=== PATIENT | male | born 1940 | race African-American/Black ===

== ENCOUNTER 2018-07-14 12:25 | Emergency (ER) | payer OTHER ==
[2018-07-14] MEDS ORDERED: Dextrose 50% Abboject 50 ML SYRINGE ONE ×2 (13:22→14:02)
== END 2018-07-14 14:40 | disposition home or self-care (01) ==
LOC: NAV ERS 12:25
DX: E11.649 Type 2 diabetes mellitus with hypoglycemia without coma (principal)
CPT/HCPCS: 36416; 96374; 96376